=== PATIENT | female | born 1995 | race Caucasian/White ===

== ENCOUNTER 2018-02-15 05:25 | Emergency (ER) | payer OTHER | END 2018-02-15 07:16 | disposition home or self-care (01) | LOC: MADERS 05:25 | DX: J02.0 Streptococcal pharyngitis (principal); E66.9 Obesity, unspecified | CPT/HCPCS: 87081; 87430; 99283 ==

== ENCOUNTER 2018-03-02 01:59 | Emergency (ER) | payer OTHER | END 2018-03-02 02:22 | disposition home or self-care (01) | LOC: MADERS 01:59 | DX: R11.2 Nausea with vomiting, unspecified (principal); E66.9 Obesity, unspecified | CPT/HCPCS: 99283 ==

== ENCOUNTER 2018-04-20 22:04 | Emergency (ER) | payer OTHER ==
[2018-04-20] MEDS ORDERED: Ibuprofen 800 MG TAB ONE (22:41)
[2018-04-20] MEDS ORDERED: Acetaminophen 500 MG TAB ONE (22:41)
== END 2018-04-20 22:52 | disposition home or self-care (01) ==
LOC: MADERS 22:04
DX: S96.912A Strain of unspecified muscle and tendon at ankle and foot level, left foot, initial encounter (principal); X50.1XXA Overexertion from prolonged static or awkward postures, initial encounter
CPT/HCPCS: 99283

== ENCOUNTER 2018-07-12 00:34 | Emergency (ER) | payer OTHER ==
[2018-07-12 01:39] LABS: Bilirubin Negative (Negative); Blood, Urine Negative (Negative); Clarity Clear (Clear); Glucose, Urine (Dipstick) Negative (Negative); Leukocyte Negative (Negative); Nitrite Negative (Negative); Protein, Urine (Dipstick) Negative (Neg-Trace); Urobilinogen 0.2 mg/dL (0.2-1.0); pH, Urine 5.5 (5.0-9.0)
[2018-07-12 01:44] LABS: BHCG - Serum Negative (NEGATIVE); Pregs Control Background? CLEAR/WHITE (CLR/WHITE); Pregs Control Bar Appear? YES (CONTROL BAR)
[2018-07-12 01:45] LABS: Specific Gravity, Urine 1.031 (1.002-1.036)
[2018-07-12 01:46] LABS: #Basophils 0.1 thou/uL (0.0-0.2); #Eosinphils 0.1 thou/uL (0.0-0.7); #Lymphocytes 1.7 thou/uL (1.20-3.40); #Monocytes 0.5 thou/uL (0.11-0.59); #Neutrophils 7.6 thou/uL (1.40-6.50); %Basophils 0.9 % (0.0-1.0); %Eosinophils 0.7 % (0.0-10.0); %Lymphocytes 17.3 % (21.0-51.0); %Monocytes 4.7 % (0.0-10.0); %Neutrophils 76.5 % (42.0-75.0); ALT (SGPT) 42 U/L (8-55); AST (SGOT) 20 U/L (5-34); Albumin 4.3 g/dL (3.5-5.0); Alkaline Phosphatase 86 U/L (40-150); Anion Gap 16 mmol/L (10-20); BUN (Urea Nitrogen) 13 mg/dL (7.0-18.7); Bilirubin, Total 0.5 mg/dL (0.2-1.2); Calc. Creatinine Clearance 0 mL/min (70-130); Calcium 9.4 mg/dL (7.8-10.44); Carbon Dioxide 25 mmol/L (22-29); Chloride 102 mmol/L (98-107); Estimated GFR-MDRD 82; Globulin 3.3 g/dL (2.4-3.5); Glucose 99 mg/dL (70-105); Hemoglobin 14.3 g/dL (12.0-16.0); Lipase 17 U/L (8-78); Mean Corpuscular HGB CONC 34.1 g/dL (32.0-36.0); Mean Corpuscular Hemoglobin 30.8 pg (27.0-31.0); Mean Corpuscular Volume 90.5 fL (78.0-98.0); Mean Platelet Volume 8.3 fL (7.4-10.4); Platelet Count 357 thou/uL (130-400); Protein, Total 7.6 g/dL (6.0-8.3); Red Blood Cell (RBC) Count 4.63 mill/uL (4.20-5.40); Sodium 139 mmol/L (136-145); White Blood Cell (WBC) Count 9.9 thou/uL (4.8-10.8)
[2018-07-12] MEDS ORDERED: Ondansetron ODT 4 MG TAB ONE (01:52)
== END 2018-07-12 01:55 | disposition home or self-care (01) ==
LOC: MADERS 00:34
DX: K52.9 Noninfective gastroenteritis and colitis, unspecified (principal)
CPT/HCPCS: 36415; 80053; 81003; 83690; 84703; 85025; 99284; Q0162

== ENCOUNTER 2018-08-16 12:05 | Emergency (ER) | payer SELFPAY, OTHER | END 2018-08-16 12:35 | disposition home or self-care (01) | LOC: MADERS 12:05 | DX: K02.9 Dental caries, unspecified (principal) | CPT/HCPCS: 99281 ==

== ENCOUNTER 2018-09-07 06:28 | Emergency (ER) | payer SELFPAY, OTHER ==
--- NOTE | 2018-09-07 07:49 | RAD ---
LEFT MIDDLE FINGER THREE VIEWS: HISTORY: Injury and pain to middle finger. FINDINGS: No evidence of fracture or dislocation. No osseous abnormality identified. IMPRESSION: no acute finding. POS: C
== END 2018-09-07 08:10 | disposition home or self-care (01) ==
LOC: MADERS 06:28
DX: O9A.211 Injury, poisoning and certain other consequences of external causes complicating pregnancy, first trimester (principal); S60.032A Contusion of left middle finger without damage to nail, initial encounter; O99.341 Other mental disorders complicating pregnancy, first trimester; F31.9 Bipolar disorder, unspecified; X50.9XXA Other and unspecified overexertion or strenuous movements or postures, initial encounter; Y92.69 Other specified industrial and construction area as the place of occurrence of the external cause; Z3A.00 Weeks of gestation of pregnancy not specified

== ENCOUNTER 2018-09-15 16:08 | Emergency (ER) | payer OTHER, SELFPAY ==
[~2018-09-15 16:08] MED LIST: Sodium Chloride 0.9% 1,000 ML BAG ONE
[2018-09-15] MEDS ORDERED: diphenhydrAMINE 50 MG/ML VIAL ONE (18:28)
[2018-09-15] MEDS ORDERED: Metoclopramide HCl 10 MG/2 ML VIAL ONE (18:28)
[2018-09-15 18:29] LABS: #Basophils 0.1 thou/uL (0.0-0.2); #Eosinphils 0.1 thou/uL (0.0-0.7); #Lymphocytes 2.4 thou/uL (1.20-3.40); #Monocytes 0.5 thou/uL (0.11-0.59); #Neutrophils 6.8 thou/uL (1.40-6.50); %Eosinophils 0.5 % (0.0-10.0); %Lymphocytes 24.7 % (21.0-51.0); %Neutrophils 68.9 % (42.0-75.0); Hemoglobin 14.8 g/dL (12.0-16.0); Mean Corpuscular HGB CONC 33.1 g/dL (32.0-36.0); Mean Corpuscular Hemoglobin 30.1 pg (27.0-31.0); Mean Corpuscular Volume 90.8 fL (78.0-98.0); Mean Platelet Volume 8.4 fL (7.4-10.4); Platelet Count 344 thou/uL (130-400); Red Blood Cell (RBC) Count 4.92 mill/uL (4.20-5.40); White Blood Cell (WBC) Count 9.8 thou/uL (4.8-10.8)
[2018-09-15 18:52] LABS: ALT (SGPT) 45 U/L (8-55); AST (SGOT) 30 U/L (5-34); Albumin 4.5 g/dL (3.5-5.0); Alkaline Phosphatase 80 U/L (40-150); Anion Gap 18 mmol/L (10-20); BUN (Urea Nitrogen) 7 mg/dL (7.0-18.7); Bilirubin, Total 0.5 mg/dL (0.2-1.2); Calc. Creatinine Clearance 0 mL/min (70-130); Calcium 9.8 mg/dL (7.8-10.44); Carbon Dioxide 23 mmol/L (22-29); Chloride 101 mmol/L (98-107); Estimated GFR-MDRD 87; Globulin 3.6 g/dL (2.4-3.5); Glucose 104 mg/dL (70-105); Potassium 4.3 mmol/L (3.5-5.1); Protein, Total 8.1 g/dL (6.0-8.3); Sodium 138 mmol/L (136-145)
[2018-09-15 20:27] LABS: Bilirubin Negative (Negative); Blood, Urine Negative (Negative); Clarity Clear (Clear); Glucose, Urine (Dipstick) Negative (Negative); Leukocyte Moderate (Negative); Nitrite Negative (Negative); Protein, Urine (Dipstick) Negative (Neg-Trace); Urobilinogen 0.2 mg/dL (0.2-1.0); pH, Urine 5.5 (5.0-9.0)
[2018-09-15 20:30] LABS: Specific Gravity, Urine 1.007 (1.002-1.036)
[2018-09-15 20:35] LABS: RBC/HPF None Seen HPF (0-3)
[2018-09-15 20:36] LABS: Bacteria/HPF 1+ HPF (None Seen); Hyaline Casts/LPF NONE SEEN LPF (0-3 Hyaline)
== END 2018-09-15 21:30 | disposition home or self-care (01) ==
LOC: MADERS 16:08
DX: O21.0 Mild hyperemesis gravidarum (principal); O99.341 Other mental disorders complicating pregnancy, first trimester; F31.9 Bipolar disorder, unspecified; Z3A.01 Less than 8 weeks gestation of pregnancy
CPT/HCPCS: 80053; 81003; 81015; 85025; 87086; 96361; 96374; 96375; J1200; J2765; J7050

== ENCOUNTER 2018-11-23 12:00 | Emergency (ER) | payer OTHER ==
[2018-11-23 12:39] LABS: Bilirubin Small (Negative); Blood, Urine Negative (Negative); Glucose, Urine (Dipstick) Negative (Negative); Leukocyte Negative (Negative); Nitrite Negative (Negative); Protein, Urine (Dipstick) 30 mg/dL (Neg-Trace); Specific Gravity, Urine 1.029 (1.002-1.036); pH, Urine 5.5 (5.0-9.0)
[2018-11-23 12:40] LABS: Clarity Hazy (Clear)
[2018-11-23 12:46] LABS: Bacteria/HPF Rare-Few HPF (None Seen); RBC/HPF 0-3 HPF (0-3); WBC/HPF 0-3 HPF (0-3)
[2018-11-23 12:50] LABS: Pregnancy Test - Urine (BHCG) POSITIVE (Negative); Pregu Control Background? CLEAR/WHITE (CLR/WHITE); Pregu Control Bar Appear? YES (CONTROL BAR); Specific Gravity 1.029 (1.002-1.036)
[2018-11-23 13:10] LABS: #Lymphocytes 1.3 thou/uL (1.20-3.40); #Monocytes 0.4 thou/uL (0.11-0.59); #Neutrophils 13.6 thou/uL (1.40-6.50); %Basophils 0.3 % (0.0-1.0); %Eosinophils 0.1 % (0.0-10.0); %Lymphocytes 8.2 % (21.0-51.0); %Monocytes 2.7 % (0.0-10.0); %Neutrophils 88.7 % (42.0-75.0); Hemoglobin 14.4 g/dL (12.0-16.0); Mean Corpuscular HGB CONC 33.8 g/dL (32.0-36.0); Mean Corpuscular Volume 88.8 fL (78.0-98.0); Mean Platelet Volume 9.4 fL (7.4-10.4); Platelet Count 261 thou/uL (130-400); RBC Distribution Width 13.3 % (11.5-14.5); White Blood Cell (WBC) Count 15.3 thou/uL (4.8-10.8)
--- NOTE | 2018-11-23 13:18 | RAD ---
AP view chest as well as supine and upright views abdomen. HISTORY: Dyspnea. AP view chest as well as 2 views abdomen demonstrates the lungs to be well aerated. No evidence of ac tive intrathoracic disease seen. No evidence of effusions, pneumonia or pneumothorax seen 2 views abdomen demonstrate a moderate amount of stool seen in the colon. No evidence of bowel obstru ction or ileus seen no dilated loops of bowel seen. Transitional L5 vertebral bodies seen. IMPRESSION: unremarkable AP view chest and 2 views abdomen.
[2018-11-23 13:27] LABS: ALT (SGPT) 22 U/L (8-55); AST (SGOT) 15 U/L (5-34); Alkaline Phosphatase 76 U/L (40-150); Anion Gap 15 mmol/L (10-20); BUN (Urea Nitrogen) 7 mg/dL (7.0-18.7); Bilirubin, Total 0.5 mg/dL (0.2-1.2); Calc. Creatinine Clearance 0 mL/min (70-130); Calcium 9.6 mg/dL (7.8-10.44); Carbon Dioxide 22 mmol/L (22-29); Chloride 105 mmol/L (98-107); Estimated GFR-MDRD Greater than 90; Globulin 3.1 g/dL (2.4-3.5); Glucose 105 mg/dL (70-105); Lipase 12 U/L (8-78); Potassium 4.1 mmol/L (3.5-5.1); Protein, Total 7.1 g/dL (6.0-8.3); Sodium 138 mmol/L (136-145)
[2018-11-23] MEDS ORDERED: Metoclopramide HCl 10 MG/2 ML VIAL ONE (14:08)
== END 2018-11-23 14:36 | disposition home or self-care (01) ==
LOC: MADERS 12:00
DX: O21.9 Vomiting of pregnancy, unspecified (principal); O99.342 Other mental disorders complicating pregnancy, second trimester; F31.9 Bipolar disorder, unspecified; Z3A.17 17 weeks gestation of pregnancy
CPT/HCPCS: 74022; 80053; 81003; 81015; 81025; 83690; 85025; 96372; J2765

== ENCOUNTER 2018-12-08 14:52 | Emergency (ER) | payer OTHER | END 2018-12-08 15:41 | disposition home or self-care (01) | LOC: MADERS 14:52 | DX: O9A.212 Injury, poisoning and certain other consequences of external causes complicating pregnancy, second trimester (principal); S16.1XXA Strain of muscle, fascia and tendon at neck level, initial encounter; O99.342 Other mental disorders complicating pregnancy, second trimester; F31.9 Bipolar disorder, unspecified; X50.9XXA Other and unspecified overexertion or strenuous movements or postures, initial encounter; Y93.72 Activity, wrestling; Z3A.19 19 weeks gestation of pregnancy | CPT/HCPCS: 99283 ==

== ENCOUNTER 2019-01-12 22:59 | Emergency (ER) | payer OTHER | END 2019-01-13 00:04 | disposition short-term general hospital (02) | LOC: MADERS 22:59 | DX: O99.89 Other specified diseases and conditions complicating pregnancy, childbirth and the puerperium (principal); R10.2 Pelvic and perineal pain; Z3A.24 24 weeks gestation of pregnancy | CPT/HCPCS: 99284 ==